=== PATIENT | female | born 1985 | race Caucasian/White ===

== ENCOUNTER 2019-06-04 00:37 | Emergency (ER) | payer OTHER ==
[2019-06-04 01:02] LABS: Bacteria/HPF 2+ HPF (None Seen); Bilirubin 1+ (Negative); Blood, Urine Negative (Negative); Clarity Clear (Clear); Glucose, Urine (Dipstick) Normal (Negative); Leukocyte Negative Leu/uL (Negative); Nitrite 1+ (Negative); Protein, Urine (Dipstick) Negative (Neg-Trace); RBC/HPF 0-3 HPF (0-3); Squamous Epithelial 0-3 HPF (0-3); Urobilinogen 3 mg/dL (Less than 2); WBC/HPF 0-3 HPF (0-3)
[2019-06-04 01:33] LABS: Hemoglobin 11.1 g/dL (12.0-16.0); Mean Corpuscular HGB CONC 32.8 g/dL (32.0-36.0); Mean Corpuscular Hemoglobin 21.2 pg (27.0-31.0); Mean Corpuscular Volume 64.7 fL (78.0-98.0); Mean Platelet Volume 8.3 fL (7.4-10.4); Platelet Count 303 thou/uL (130-400); RBC Distribution Width 14.5 % (11.5-14.5); Red Blood Cell (RBC) Count 5.25 mill/uL (4.20-5.40); White Blood Cell (WBC) Count 13.2 thou/uL (4.8-10.8)
[2019-06-04 01:48] LABS: #Basophils 0.1 thou/uL (0.0-0.2); #Eosinphils 0.1 thou/uL (0.0-0.7); #Lymphocytes 3.7 thou/uL (1.20-3.40); #Monocytes 0.8 thou/uL (0.11-0.59); #Neutrophils 8.6 thou/uL (1.40-6.50); %Basophils 0.6 % (0.0-1.0); %Eosinophils 0.7 % (0.0-10.0); %Lymphocytes 27.8 % (21.0-51.0); %Monocytes 6.1 % (0.0-10.0); %Neutrophils 64.9 % (42.0-75.0); MDiff Complete? YES; Microcytosis SLIGHT = 6-15 cells (100X) (0-5/hpf); Tear Drops SLIGHT = 2-5 cells (100X) (0-1/hpf)
--- NOTE | 2019-06-04 07:25 | ULT ---
TRANSVAGINAL PELVIC ULTRASOUND: INDICATION: History of early and pelvic pain. FINDINGS: There is a small intraluminal oval cystic structure suspicious for a small gestational sac. This luli sures 3.6 mm giving an estimated gestational age of 5 weeks and 1 day. No intergestational yolk sac or pole is demonstrated. A small amount of free fluid is seen within the pelvis. The right ov john measures 3.5 x 4.3 x 3.8 cm. There is a small follicular cyst within the right ovary measuring 2 .9 cm. The left ovary measures 3.4 x 2.4 x 2.5 cm. A small amount of free fluid is seen in the pelvis. IMPRESSION: 1. Small intrauterine cystic abnormality most suspicious for an intrauterine gestational sac. No yo lk sac or pole is yet identified. Findings are most consistent with of undetermined location. Ectopic still not excluded. Will recommend continued clinical and sonographic followup. The gestational age based on suspected gestational sac mean diameter was 5 weeks and 1 day. 2. Right ovarian cyst. POS: [facility]
[2019-06-04 23:05] LABS: Chlamydia by PCR Not Detected (NotDetected); GC by PCR Not Detected (NotDetected)
== END 2019-06-04 03:45 | disposition home or self-care (01) ==
LOC: ERS 00:37
DX: O23.41 Unspecified infection of urinary tract in pregnancy, first trimester (principal); O99.341 Other mental disorders complicating pregnancy, first trimester; F31.9 Bipolar disorder, unspecified; F41.9 Anxiety disorder, unspecified; F60.9 Personality disorder, unspecified; Z87.891 Personal history of nicotine dependence; O99.011 Anemia complicating pregnancy, first trimester
CPT/HCPCS: 36415; 76856; 81003; 81015; 84702; 85025; 86900; 86901; 87480; 87491; 87510; 87591; 87660

== ENCOUNTER 2019-12-08 18:03 | Day surgery (SDC) | payer OTHER ==
[2019-12-08 18:32] VITALS: BMI 41.3
[2019-12-08] MEDS ORDERED: Ondansetron PF 4 MG/2 ML Vial IVP PRN (19:44)
[2019-12-08] MEDS ORDERED: Lactated Ringer's 1,000 ML IV SCH (19:45)
[2019-12-08] MEDS ORDERED: Acetaminophen 500 MG TAB PO SCH (19:45)
--- NOTE | 2019-12-08 20:56 | PDOC.FPROB ---
FMR OB H&P: HPI - History of Present Illness Chief Complaint: fever, body aches, vomiting Indentification: 34yo at 31w by undetermined dates History of Present Illness: Pt presented to [facility] for flu-like sx. She was seen in the clinic late last week after having positive flu exposure from son. She saw PCP, Dr. Cespedes, who placed her on prophylactic tamiflu. She developed body aches, subjective fever, n/v on Saturday and sx persisted. N/v became worse so went to [place] ED today where she was confirmed with Influenza. She was transferred here for OB evaluation. Currently reports feeling improved after receiving 1LNS , 4mg ODT Zofran, 4mg IV Zofran at outside ED. She had a MCCOY that is resolved with tylenol. Denies abd pain, vb, lof. Reports good FM. Primary Care Physician: Angi QUINTANA FMR OB H&P: Current - Care : 2 Para: 1 Gestational age: 32 FMR OB H&P: History - Past Medical History PMH: Bipolar DO - OB History OB History: 1 prior Csection at 34w d/t preeclampsia - Surgical History Sx History: wrist sx ankle sx tonsillectomy cholecystectomy - Family History Family History: none FMR OB H&P: Medications - Current Home Medications: Medication Instructions Recorded Confirmed Type Acyclovir [Acyclovir 3% Ointment] 12/08/19 History Doxylamine Succinate/Vit B6 1 tablet PO DAILY 12/08/19 12/08/19 History [Bonjesta ER 20-20 mg Tablet] Famotidine 1 tablet PO DAILY 12/08/19 12/08/19 History Magnesium Oxide 1 tablet PO DAILY 12/08/19 12/08/19 History Nystatin 12/08/19 History Ondansetron [Zofran ODT] 4 mg PO Q4HR PRN #30 tab 12/08/19 Rx Oseltamivir [Tamiflu] 75 mg PO BID #6 cap 12/08/19 Rx Pnv73/Iron,Gluc/Folic/Dss/Dha 1 tablet PO DAILY 12/08/19 12/08/19 History [Citranatal Assure Combo Pack] QUEtiapine Fumarate [SEROquel] 1 tablet PO DAILY 12/08/19 12/08/19 History Sertraline HCl 1 tablet PO DAILY 12/08/19 12/08/19 History valACYclovir HCl [Valacyclovir] 1 tablet PO DAILY 12/08/19 12/08/19 History Allergies/Adverse Reactions: Allergies Allergy/AdvReac Type Severity Reaction Status Date / Time No Known Allergies Allergy Unverified 12/08/19 18:14 FMR OB H&P: ROS - Review of Systems General: reports: fever/chills, weight/appetite/sleep changes, fatigue ENT: reports: nasal congestion. denies: sore throat Respiratory: denies: shortness of breath Gastrointestinal: reports: nausea, vomiting. denies: abdominal pain Genitourinary (Female): denies: vaginal bleeding, contractions Musculoskeletal: reports: pain FMR OB H&P: Vital Signs - Maternal Vital signs: BP 117/70, P91, T98.2, R20, 98% O2 RA - Heart Tones Baseline: 130 Variability: moderate Acceleration: present Deceleration: absent Category: category 1 [place] contractions every: none FMR OB H&P: Physical Exam - Physical Exam General: NAD, awake, alert and oriented Heart: RRR General: no respiratory distress Abdomen: gravid, non-tender Psychiatric: intact recent and remote memory, normal mood and affect FMR OB H&P: Results - Labs Lab results: WBC 8.6 Hgb 9.1 Hct 30.2 LA 1.1 UA with 100 protein, trace blood, trace ketones, small bilirubin, 2+ bacteria FMR OB H&P: A/P - Problem List (1) Influenza Status: Acute Code(s): J11.1 - FLU DUE TO UNIDENTIFIED INFLUENZA VIRUS W OTH RESP MANIFEST (2) Status: Acute (3) Bipolar 1 disorder Status: Acute Code(s): F31.9 - BIPOLAR DISORDER, UNSPECIFIED Disposition: at 31w here with influenza. Influenza during 3T: s/p 1L NS, zofran IV and ODT in outside ED. VS wnl. Reactive strip. Discussed with pt sx managment at home with OTC Mucinex, tylenol cold/flu, and tylenol for MCCOY. Will send home with ODT Zofran and discussed importance of PO hydration. Pt tolerating PO intake at this time. Transition to Tamiflu BID to complete 5 day course. Recommend f/u with PCP within the week. Bipolar DO: continue home meds. Dispo: D/c home. Discussion: Date/Time: 12/08/192055 This H&P was discussed with Dr. Soriano who agree with the above documentation and plan. Addendum - Attending - Attending Attestation Date/Time: 12/09/19805 I personally evaluated the patient and discussed the management with Dr. Lucero and Juan Carlos. I agree with the History, Examination, Assessment and Plan documented above with any addition or exceptions noted below. The patient looks quite well. She is AF, has mild erythema of the POP s exudates, no cervical or supraclavicular LAD, RRR s M, CTAB s w/r/r. No edema. Change ppx tamiflu to treatment dose. PRN meds for symptoms. Follow up in clinic is in 2 days per her report.
== END 2019-12-08 21:55 | disposition home or self-care (01) ==
LOC: L&D/OP 18:03
PROVIDERS: ATTEND Family Medicine
DX: O99.513 Diseases of the respiratory system complicating pregnancy, third trimester (principal); J11.1 Influenza due to unidentified influenza virus with other respiratory manifestations; O99.343 Other mental disorders complicating pregnancy, third trimester; F31.9 Bipolar disorder, unspecified; O34.219 Maternal care for unspecified type scar from previous cesarean delivery; Z3A.31 31 weeks gestation of pregnancy; Z79.899 Other long term (current) drug therapy
CPT/HCPCS: 96360; 96361; 99283

== ENCOUNTER → 2020-01-19 | Day surgery (SDC) | payer OTHER ==
[~2020-01-19] MED LIST: hydrALAZINE 20 MG/ML VIAL SLOW IVP PRN
--- NOTE | 2020-01-19 14:02 | PDOC.FPROB ---
FMR OB H&P: HPI - History of Present Illness Chief Complaint: Elevated BP, [place], RUQ Pain, Swelling, MCCOY History of Present Illness: Pt is a 34 yo F @ 37.2 wks who presents for elevated blood pressure. She has a history of pre-eclampsia and was induced at 36 weeks with her last . She went to have her weekly modified BPP today at clinic. Her initial blood pressure was 152/81. They re-checked it and was her blood pressure was 133/69. Blood pressures were running 120s-130s for the past two weeks, but this past week blood pressure were running 140s. She endorsed bright spots in her vision, RUQ pain, swelling, and headache at clinic today. They sent her over for workup. Patient says over the weekend she became lightheaded and dizzy upon standing and had bright flashes in her vision. She says this was alleviated with rest. Blood pressure was in 140s, but she was advised to go to the ER for blood pressures in 150s. She says she has had good movement. No bleeding or loss of fluids. She has had vaginal discharge of . Primary Care Physician: DAMIÁN Cespedes FMR OB H&P: Current - Care : 2 Para: 1 Gestational age: 37 Due date: 02/07/2020 Dating Criteria: 7.2 wk US Total weight gain: 25 - OB Labs Blood type: O RH: negative Antibody Screen: negative HIV: negative RPR: negative Rubella: immune Gonorrhea: negative Chlamydia: negative A1c: 4.9% H&H: 8.9/28 Platelets: 304 Additional labs: Hep C: NR - First Trimester Ultrasound First trimester: US @7.2 wks - Anatomy Survey Anatomy survey: AURE: 14.4 cm, MVP: 5.3 cm. BPP 8/8. Normal anatomy survey. Posterior placenta with no accreta or previa. FMR OB H&P: History - Past Medical History PMH: Bipolar, Beta-thalassemia minor, Anemia, GERD, Migraine, HSV - OB History OB History: History of Pre-Eclampsia with first LTCS @ 34 wks. - Surgical History Sx History: - Social History Social History: Stopped smoking when she found out she was this . Previously smoked 4-5 years 1 pack every 2 days. No alcohol or recreational drugs. - Family History Family History: HTN in mother FMR OB H&P: Medications - Current Home Medications: Medication Instructions Recorded Confirmed Type Acyclovir [Acyclovir 3% Ointment] 12/08/19 History Doxylamine Succinate/Vit B6 1 tablet PO DAILY 12/08/19 12/08/19 History [Bonjesta ER 20-20 mg Tablet] Famotidine 1 tablet PO DAILY 12/08/19 12/08/19 History Magnesium Oxide 1 tablet PO DAILY 12/08/19 12/08/19 History Nystatin 12/08/19 History Ondansetron [Zofran ODT] 4 mg PO Q4HR PRN #30 tab 12/08/19 Rx Oseltamivir [Tamiflu] 75 mg PO BID #6 cap 12/08/19 Rx Pnv73/Iron,Gluc/Folic/Dss/Dha 1 tablet PO DAILY 12/08/19 12/08/19 History [Citranatal Assure Combo Pack] QUEtiapine Fumarate [SEROquel] 1 tablet PO DAILY 12/08/19 12/08/19 History Sertraline HCl 1 tablet PO DAILY 12/08/19 12/08/19 History valACYclovir HCl [Valacyclovir] 1 tablet PO DAILY 12/08/19 12/08/19 History Allergies/Adverse Reactions: Allergies Allergy/AdvReac Type Severity Reaction Status Date / Time No Known Allergies Allergy Unverified 12/08/19 18:14 FMR OB H&P: ROS - Review of Systems General: reports: fatigue. denies: fever/chills Eyes: reports: scotomas ENT: denies: nasal congestion, rhinorrhea Cardiovascular: reports: edema. denies: chest pain Respiratory: reports: shortness of breath. denies: cough Gastrointestinal: reports: abdominal pain. denies: nausea, vomiting, diarrhea, constipation Genitourinary (Female): reports: vaginal discharge. denies: vaginal bleeding, contractions Musculoskeletal: reports: swelling Neurologic: reports: other (dizziness) Integumentary: denies: itching Endocrine: denies: polydipsia, polyuria Hematologic/Lymphatic: denies: prolonged or excessive bleeding, enlarged lymph nodes Psychological: reports: depression, anxiety FMR OB H&P: Vital Signs - Maternal Vital signs: BP: 126/73 HR: 99 T: 99.7 O2: 100 on RA Wt: 116.12 kg - Heart Tones Baseline: 120 Variability: moderate Acceleration: present Deceleration: absent Category: category 1 [place] contractions every: 1 every 10 minutes FMR OB H&P: Physical Exam - Physical Exam General: NAD, awake, alert and oriented HEENT: normocephalic and atraumatic, PERRLA, EOMI, MMM, conjunctiva clear, oropharynx clear Neck: supple, FROM Heart: RRR, normal S1/S2, no murmurs/rubs/gallops, pulses present, no edema General: CTAB, no respiratory distress, good air movement, no rales/rhonchi, no wheezing, no retractions Abdomen: soft, gravid, non-tender, bowel sound present Musculoskeletal: normal gait and station, pulses present, FROM in all four extremities Skin: no rash, good tugor, no jaundice Lymphatic: no unusual bruising or bleeding, no purpura, no petechia Psychiatric: intact recent and remote memory, good judgement and insight, normal mood and affect FMR OB H&P: Results - Imaging Imaging: BPP: 8/10, no breathing, AURE: 13, Vertex, HR: 144 FMR OB H&P: A/P - Problem List (1) Elevated blood pressure affecting in third trimester, antepartum Current Visit: Yes Status: Acute Code(s): O16.3 - UNSPECIFIED MATERNAL HYPERTENSION, THIRD TRIMESTER (2) Bipolar 1 disorder Current Visit: No Status: Acute Code(s): F31.9 - BIPOLAR DISORDER, UNSPECIFIED (3) Current Visit: No Status: Acute Disposition: Pt is a 34 yo F @ 37.2 wks who presents for elevated blood pressure. 1. Elevated Blood pressure BP: 152/81 in clinic 133/69 on recheck * Blood pressures at home were 140s * Complained for bright flashes, swelling, SOB, and dizziness with standing * CBC, CMP, & Protein/Creatinine ordered all wnl except Hgb 9.8, which is improved * BPP: 8/10 due to lack of breathing * Strip reactive * BP was 110s-120s throughout observation. 2. HSV * Currently on Prophylaxis 3. Beta-Thalasemmia Minor with Anemia * Currently on Iron 4. Bipolar Disorder * Taking Zoloft & Seroquel Dispo: D/c with precautions to return. Discussion: Date/Time: 01/19/20 1401 This H&P was discussed with [] and [] who agree with the above documentation and plan. Addendum - Attending - Attending Attestation Date/Time: 01/19/20 1641 I personally evaluated the patient and discussed the management with Dr. Iveth Méndez I agree with the History, Examination, Assessment and Plan documented above with any addition or exceptions noted below - 34 yo @37.2 weeks with h/ o cHTN and beta thalassemia minor sent from clinic due to elevated BP while being seen for BPP. Reports spots in front eyes for last 2-3 days primarily when changing positions. Home BP has been in 140/70 for last 2-3 days. (+) FM. Initial BP at office 151/71 repeat was 133/76. Serial BP in L&D 100-110/60s- 70s. NST reactive; BPP 6/8. ALT/AST- normal. Platelets normal. Urine protein< 10. A/P: 1) IUP @ 37.2 weeks with cHTN- normal BP here and urine protein negative. Will d/c home with close monitoring. F/U as scheduled in office on Thrusday.
[2020-01-19 14:18] VITALS: BMI 41.3
[2020-01-19 15:02] VITALS: BP 112/67; TEMP 97.4
[2020-01-19 15:13] LABS: Bacteria/HPF 4+ HPF (None Seen); Bilirubin Negative (Negative); Blood, Urine Negative (Negative); Clarity Clear (Clear); Glucose, Urine (Dipstick) Normal (Negative); Leukocyte Negative Leu/uL (Negative); Nitrite Negative (Negative); Protein, Urine (Dipstick) Negative (Neg-Trace); RBC/HPF 0-3 HPF (0-3); Squamous Epithelial 0-3 HPF (0-3); Urobilinogen Normal mg/dL (Less than 2); WBC/HPF 0-3 HPF (0-3)
[2020-01-19 15:19] LABS: Hemoglobin 9.8 g/dL (12.0-16.0); Mean Corpuscular HGB CONC 29.2 g/dL (32.0-36.0); Mean Corpuscular Hemoglobin 20.5 pg (27.0-31.0); Mean Corpuscular Volume 70.2 fL (78.0-98.0); Mean Platelet Volume 9.9 fL (7.4-10.4); Platelet Count 293 thou/uL (130-400); RBC Distribution Width 16.9 % (11.5-14.5); Red Blood Cell (RBC) Count 4.79 mill/uL (4.20-5.40); White Blood Cell (WBC) Count 10.1 thou/uL (4.8-10.8)
[2020-01-19 15:44] LABS: Anisocytosis SLIGHT = 6-15 cells (100X) (0-5/hpf); Band 2 % (5-11); Eosinophils 1 % (0-10); Hypochromia SLIGHT = 6-15 cells (100X) (0-5/hpf); Lymphocytes 26 % (21-51); MDiff Complete? YES; Metamyelocyte 1 % (0-0); Microcytosis SLIGHT = 6-15 cells (100X) (0-5/hpf); Monocytes 9 % (0-10); Myelocyte 2 % (0-0); Neutrophil 58 % (42-75); Platelet Morphology Comment Appears Adequate; Polychromasia SLIGHT = 2-3 cells (100X) (0-2/hpf); Tear Drops SLIGHT = 2-5 cells (100X) (0-1/hpf)
[2020-01-19 15:45] LABS: Creatinine, Urine 25.65 mg/dL (47-110); Protein, Urine Random Quant Less than 10 mg/dL (1-14)
[2020-01-19 15:47] LABS: ALT (SGPT) 15 U/L (8-55); AST (SGOT) 32 U/L (5-34); Albumin 3.4 g/dL (3.5-5.0); Alkaline Phosphatase 63 U/L (40-110); Anion Gap 14 mmol/L (10-20); BUN (Urea Nitrogen) 4 mg/dL (7.0-18.7); Bilirubin, Total 0.3 mg/dL (0.2-1.2); Calc. Creatinine Clearance 262 mL/min (70-130); Calcium 9.1 mg/dL (7.8-10.44); Carbon Dioxide 18 mmol/L (22-29); Chloride 107 mmol/L (98-107); Estimated GFR-MDRD Greater than 90; Globulin 3.1 g/dL (2.4-3.5); Glucose 67 mg/dL (70-105); Potassium 4.2 mmol/L (3.5-5.1); Protein, Total 6.5 g/dL (6.0-8.3); Sodium 135 mmol/L (136-145)
--- NOTE | 2020-01-19 16:24 | ULT ---
ULTRASOUND BIOPHYSICAL PROFILE: 01/19/20 HISTORY: Pre-eclampsia. COMPARISON: Pelvic ultrasound 06/04/19. FINDINGS: Real time carrillo scale, color Doppler with spectral analysis of the gravid uterus is performed. The biophysical profile score was 6/8 scoring 0 for breathing. There is a normal score of 2 for tone, 2 for movements, and 2 for amniotic fluid. Heart rate documented at 141 beats per minute. Amniotic fluid index: 13 cm. The position is vertex. IMPRESSION: Biophysical profile score of 6/8. POS: [facility]
== END | disposition home or self-care (01) ==
LOC: L&D/OP 13:50
PROVIDERS: ATTEND Emergency Medicine
DX: O10.913 Unspecified pre-existing hypertension complicating pregnancy, third trimester (principal); O34.219 Maternal care for unspecified type scar from previous cesarean delivery; O98.513 Other viral diseases complicating pregnancy, third trimester; B00.9 Herpesviral infection, unspecified; O99.343 Other mental disorders complicating pregnancy, third trimester; F31.9 Bipolar disorder, unspecified; O99.013 Anemia complicating pregnancy, third trimester; D64.9 Anemia, unspecified; O99.613 Diseases of the digestive system complicating pregnancy, third trimester; K21.9 Gastro-esophageal reflux disease without esophagitis; Z3A.37 37 weeks gestation of pregnancy; Z87.891 Personal history of nicotine dependence; Z88.8 Allergy status to other drugs, medicaments and biological substances; Z79.899 Other long term (current) drug therapy
CPT/HCPCS: 36415; 76819; 80053; 81003; 82570; 84156; 85025; 99283

== ENCOUNTER 2020-01-26 09:24 | Inpatient (IN) | payer OTHER ==
[~2020-01-26 09:24] MED LIST changes: +Acetaminophen 500 MG TAB PO PRN; +CEFAZOLIN 2 GM in Premix Bag 1 BAG IVPB SCH; +Ondansetron PF 4 MG/2 ML Vial IVP PRN; +Promethazine HCl 25 MG/ML VIAL IM PRN
[2020-01-26] MEDS ORDERED: Succinylcholine Chloride 20 MG/ML 10 ml SYRINGE FS ONE ×2 (09:53→13:08)
[2020-01-26] MEDS ORDERED: PROPOFOL 200 MG/20 ML VIAL ONE (09:53)
[2020-01-26] MEDS ORDERED: Rocuronium Bromide 10 MG/ML (10ML VIAL) ONE (09:53)
[2020-01-26] MEDS ORDERED: Dexamethasone 20 MG/5 ML VIAL ONE (09:53)
[2020-01-26] MEDS ORDERED: Ondansetron PF 4 MG/2 ML Vial ONE ×4 (09:53→13:08)
[2020-01-26] MEDS ORDERED: Glycopyrrolate 0.2 MG/ML 5 ML SYRINGE ONE (09:53)
[2020-01-26] MEDS: Lactated Ringer's 1,000 ML IV SCH ×2 (10:25→11:43)
[2020-01-26 10:53] LABS: Hemoglobin 9.6 g/dL (12.0-16.0); Mean Corpuscular HGB CONC 32.3 g/dL (32.0-36.0); Mean Corpuscular Hemoglobin 21.5 pg (27.0-31.0); Mean Corpuscular Volume 66.5 fL (78.0-98.0); Mean Platelet Volume 8.5 fL (7.4-10.4); Platelet Count 284 thou/uL (130-400); RBC Distribution Width 16.4 % (11.5-14.5); Red Blood Cell (RBC) Count 4.48 mill/uL (4.20-5.40); White Blood Cell (WBC) Count 11.4 thou/uL (4.8-10.8)
--- NOTE | 2020-01-26 11:09 | PDOC.FPROB ---
FMR OB H&P: HPI - History of Present Illness Chief Complaint: Scheduled rLTCs History of Present Illness: Pt is a 34 yo F @ 38.2 wks who presents for repeat lower transverse c- section. She has a history of pre-eclampsia and was induced at 36 weeks with her last . Blood pressures were running 130s-140s for the last week. She endorses headaches and swelling in hands, face, and legs. She endorses good movement. No loss of fluid or bleeding. She says she does have a discharge currently, which she has been evaluated for. Primary Care Physician: DAMIÁN Cespedes/Frandy FMR OB H&P: Current - Care : 2 Para: 0101 Gestational age: 38.2 Due date: 02/07/2020 Dating Criteria: 7.2 wk US Total weight gain: 25 Course/Complications: Elevated blood pressures - OB Labs Blood type: O RH: negative Antibody Screen: negative HIV: negative RPR: negative HepBsAg: negative Rubella: immune Gonorrhea: negative Chlamydia: negative 1 hour gtt: Neg A1c: 4.9% GBS: negative H&H: 9.6/29.8 Platelets: 284 Additional labs: Hep C: Neg FMR OB H&P: History - Past Medical History PMH: Beta thalessemia, HSV, Bipolar, Anxiety - OB History OB History: History of Pre-Eclampsia with first LTCS @ 34 wks. - Surgical History Sx History: , 5 wrist surgeries - Social History Social History: No alcohol or recreational drugs. Stopped smoking when she found out she was this time. Smoked 4-5 years 1 pack every 2 days. FMR OB H&P: Medications - Current Home Medications: Medication Instructions Recorded Confirmed Type Magnesium Oxide 1 tablet PO DAILY 12/08/19 12/08/19 History Pnv73/Iron,Gluc/Folic/Dss/Dha 1 tablet PO DAILY 12/08/19 12/08/19 History [Citranatal Assure Combo Pack] QUEtiapine Fumarate [SEROquel] 1 tablet PO DAILY 12/08/19 12/08/19 History Sertraline HCl 1 tablet PO DAILY 12/08/19 12/08/19 History valACYclovir HCl [Valacyclovir] 1 tablet PO DAILY 12/08/19 01/26/20 History Allergies/Adverse Reactions: Allergies Allergy/AdvReac Type Severity Reaction Status Date / Time No Known Allergies Allergy Verified 01/26/20 11:17 FMR OB H&P: ROS - Review of Systems General: denies: fever/chills, fatigue Eyes: denies: vision changes ENT: denies: nasal congestion, rhinorrhea, sore throat Cardiovascular: reports: edema. denies: chest pain Respiratory: denies: cough, shortness of breath Gastrointestinal: reports: nausea. denies: abdominal pain, vomiting, diarrhea, constipation Genitourinary (Female): reports: vaginal discharge. denies: dysuria, vaginal bleeding, vaginal pressure Musculoskeletal: reports: swelling. denies: pain, redness Neurologic: reports: weakness. denies: numbness, syncope Integumentary: denies: itching, rash Endocrine: reports: heat intolerance Hematologic/Lymphatic: denies: prolonged or excessive bleeding Psychological: reports: anxiety FMR OB H&P: Vital Signs - Maternal Vital signs: HR: 98, BP: 120/72, T: 98.0 - Heart Tones Baseline: 120 Variability: moderate Acceleration: present Deceleration: absent Category: category 1 [place] contractions every: None FMR OB H&P: Physical Exam - Physical Exam General: NAD, awake, alert and oriented HEENT: normocephalic and atraumatic, PERRLA, EOMI, MMM, conjunctiva clear Neck: supple, trachea midline Heart: RRR, normal S1/S2, no murmurs/rubs/gallops, pulses present General: CTAB, no respiratory distress, good air movement, no wheezing, no retractions Abdomen: soft, gravid, non-tender, bowel sound present Musculoskeletal: pulses present, FROM in all four extremities Neurological: cranial nerves II through XII intact Skin: no rash, good tugor Lymphatic: no unusual bruising or bleeding, no purpura, no petechia Psychiatric: normal mood and affect FMR OB H&P: Results - Labs Lab results: Laboratory Results - last 24 hr 01/26/20 10:38 WBC 11.4 H RBC 4.48 Hgb 9.6 L Hct 29.8 L MCV 66.5 L MCH 21.5 L MCHC 32.3 RDW 16.4 H Plt Count 284 MPV 8.5 FMR OB H&P: A/P - Problem List (1) Beta minor thalassemia Current Visit: Yes Status: Acute Code(s): D56.3 - THALASSEMIA MINOR (2) HTN (hypertension) Current Visit: Yes Status: Acute Code(s): I10 - ESSENTIAL (PRIMARY) HYPERTENSION (3) Bipolar 1 disorder Current Visit: No Status: Acute Code(s): F31.9 - BIPOLAR DISORDER, UNSPECIFIED (4) Elevated blood pressure affecting in third trimester, antepartum Current Visit: No Status: Acute Code(s): O16.3 - UNSPECIFIED MATERNAL HYPERTENSION, THIRD TRIMESTER (5) Current Visit: No Status: Acute Disposition: Pt is a 34 yo F @ 37.2 wks who presents for elevated blood pressure. 1. Repeat Lower Transverse at 34 wks with first * Admit for @ 38.2 wks 2. Elevated Blood pressure in with HTN in the past BP: 120/72 * Will continue to monitor 2. HSV * Currently on Prophylaxis with Valtrex 3. Beta-Thalasemmia Minor with Anemia H&H: 9.6/29.8 Plt: 284 * Currently on Iron with vitamin 4. Bipolar Disorder * Taking Zoloft & Seroquel Dispo: Admit for rLTCS. Discussion: Date/Time: 01/26/20 1104 This H&P was discussed with [] and [] who agree with the above documentation and plan.
[2020-01-26 11:13] VITALS: BMI 41.3
[2020-01-26] MEDS ORDERED: Ondansetron PF 4 MG/2 ML Vial IVP SCH (11:15)
[2020-01-26 11:24] LABS: HBSAg Index 0.25 S/CO (0-0.99); Hep B Surf Ag Non-Reactive S/CO (NonReactive); Syphilis Antibody Nonreactive (Nonreactive); Syphilis Antibody Index 0.03 S/CO (<1.00 Non-Reactive)
[2020-01-26] MEDS: Bicitra 30 ML UDCUP PO SCH (11:41)
[2020-01-26] MEDS ORDERED: MORPHINE 5 MG/10 ML PF VIAL ONE (11:48)
[2020-01-26] MEDS ORDERED: Oxytocin 10 UNITS/ML VIAL ONE ×2 (11:49→11:50)
[2020-01-26] MEDS ORDERED: EPINEPHrine 1 MG/ML AMP ONE (11:54)
[2020-01-26] MEDS ORDERED: Lidocaine 1% (PF) 30 ML VIAL ONE (12:25)
[2020-01-26] MEDS ORDERED: Lidocaine 1% PF 5 ML VIAL ONE (12:25)
[2020-01-26] MEDS ORDERED: Fentanyl 250 MCG/5 ML VIAL ONE (12:32)
[2020-01-26] MEDS ORDERED: Midazolam HCl 2 mg/2 ml Vial ONE (12:33)
[2020-01-26] MEDS ORDERED: Rocuronium Bromide 50 MG/5 ML VIAL ONE (13:08)
[2020-01-26] MEDS ORDERED: PROPOFOL 20 ML ONE (13:08)
[2020-01-26] MEDS ORDERED: Dexamethasone 4 mg/ml Vial ONE (13:08)
[2020-01-26] MEDS ORDERED: Phytonadione Neonatal 1 MG/0.5 ML AMP ONE (13:10)
[2020-01-26] MEDS ORDERED: Erythromycin Base 0.5% Oint 1 GM TUBE ONE (13:10)
[2020-01-26] MEDS ORDERED: Meperidine HCl/PF 25 MG/ML VIAL SLOW IVP PRN (13:47)
[2020-01-26] MEDS ORDERED: Ondansetron HCl/PF 4 MG/2 ML Vial IVP PRN (13:47)
[2020-01-26] MEDS ORDERED: HYDROmorphone 2 MG/ML VIAL SLOW IVP PRN (13:47)
[2020-01-26] MEDS ORDERED: L&D-Morphine 4 MG/ML VIAL SLOW IVP PRN (13:47)
[2020-01-26] MEDS ORDERED: Morphine CADD 1 MG/ML CADD IVPB PRN (13:48)
[2020-01-26] MEDS ORDERED: diphenhydrAMINE 50 MG/ML VIAL IM PRN (13:48)
[2020-01-26] MEDS ORDERED: Promethazine HCl 25 MG/ML VIAL IM PRN (13:48)
[2020-01-26] MEDS ORDERED: Zolpidem Tartrate 5 MG TAB PO PRN (13:48)
[2020-01-26] MEDS ORDERED: diphenhydrAMINE 50 MG/ML VIAL IVP PRN (13:48)
[2020-01-26] MEDS ORDERED: Ondansetron PF 4 MG/2 ML Vial IVP PRN ×2 (13:48→15:34)
[2020-01-26] MEDS ORDERED: diphenhydrAMINE 25 MG CAP PO PRN ×2 (13:48→15:34)
[2020-01-26] MEDS ORDERED: Naloxone HCl 0.4 mg/ml Vial IV PRN ×2 (13:48→14:00)
[2020-01-26] MEDS ORDERED: Morphine Sulfate 100 MG in Dextrose 5% in Water 98 ML IV SCH (14:00)
[2020-01-26] MEDS ORDERED: Ketorolac Tromethamine 30 MG/ML VIAL IVP SCH (14:00)
[2020-01-26] MEDS ORDERED: Communication Order-Pharmacy FS SCH (14:00)
[2020-01-26] MEDS ORDERED: Meperidine HCl/PF 25 MG/ML VIAL ONE (14:30)
[2020-01-26] MEDS ORDERED: hydrALAZINE 20 MG/ML VIAL SLOW IVP PRN (15:34)
[2020-01-26] MEDS ORDERED: Lanolin Ointment 7 GM TUBE TOP PRN (15:34)
[2020-01-26] MEDS ORDERED: HYDROcodone/Acetaminophen 5/325 mg Tablet PO PRN (15:34)
[2020-01-26] MEDS ORDERED: Ibuprofen 800 MG TAB PO SCH (15:34)
[2020-01-26] MEDS ORDERED: Acetaminophen/Codeine 30-300mg Tablet PO PRN (15:34)
[2020-01-26] MEDS ORDERED: Adacel (T-DAP) 0.5 ML SYRINGE IM ONE (15:34)
[2020-01-26] MEDS ORDERED: Acetaminophen 325 MG TAB PO PRN (15:34)
[2020-01-26] MEDS: Ketorolac Tromethamine 30 MG/ML VIAL IVP PRN ×2 (17:28→23:48)
[2020-01-26 18:08] LABS: Hemoglobin 9.2 g/dL (12.0-16.0); Mean Corpuscular HGB CONC 32.5 g/dL (32.0-36.0); Mean Corpuscular Hemoglobin 21.7 pg (27.0-31.0); Mean Corpuscular Volume 66.6 fL (78.0-98.0); Mean Platelet Volume 9.2 fL (7.4-10.4); Platelet Count 284 thou/uL (130-400); RBC Distribution Width 16.1 % (11.5-14.5); Red Blood Cell (RBC) Count 4.23 mill/uL (4.20-5.40); White Blood Cell (WBC) Count 19.4 thou/uL (4.8-10.8)
[2020-01-26] MEDS: Docusate Calcium (SURFAK) 240 MG CAP PO SCH (21:39)
[2020-01-26] MEDS: Ferrous Sulfate 325 MG TAB PO SCH (21:41)
--- NOTE | 2020-01-26 21:42 | OP ---
DATE OF PROCEDURE: 01/26/2020 RESIDENT SURGEON: Anurag Wise DO [employer] SURGEONS: 1. Rod Rangel DO. 2. Christina Lindsay MD. PROCEDURE PERFORMED: Repeat low-transverse section. PREOPERATIVE DIAGNOSES: 1. Term intrauterine . 2. Chronic hypertension. 3. Beta-thalassemia minor. 4. Rh negative. 5. History of herpes simplex virus. 6. Bipolar disorder. POSTOPERATIVE DIAGNOSES: 1. Term intrauterine , delivered. 2. Chronic hypertension. 3. Beta-thalassemia minor. 4. Rh negative. 5. History of herpes simplex virus. 6. Bipolar disorder. ANESTHESIA: General, failed spinal. INDICATIONS: The patient is a 34-year-old, G2, P0-1-0-1, now P1-1-0-2, female at 38 and 2 weeks' gestation who presented for repeat scheduled section. DESCRIPTION OF PROCEDURE: After risks, benefits, alternatives were explained to the patient, she gave informed consent. Preoperative antibiotics included Ancef 2 g IV. The patient was taken to the operating room and general anesthesia was initiated after failed spinal attempt. She was placed in a supine position with a left tilt, prepped and draped in usual sterile fashion. After general anesthesia was accomplished, a Pfannenstiel incision was made with a scalpel and carried down to the level of fascia, which was sharply nicked. The fascial cut was extended bilaterally with Scherer scissors. The inferior and superior edges of the cut fascial edges were elevated with Tacho clamps and the underlying rectus muscles were sharply and bluntly dissected free. The recti were divided with hemostats as well as digitally and retracted manually. The peritoneum was entered bluntly and retracted manually. A bladder blade was placed. A low-transverse score was made with a scalpel and the uterus was entered in the midline with the scalpel. Clear fluid was seen. The hysterotomy was extended manually. The was noted to be vertex and easily delivered with fundal pressure. Mouth and nares were bulb suctioned. The cord was clamped and cut and grossly normal female infant was handed to the waiting nurse. Cord blood was obtained. The placenta was delivered spontaneously. Found to be intact with 3-vessel cord discarded. The uterus was externalized and endometrium was curetted with dry lap. The bladder blade was replaced and the uterus was closed with a running locking 1 Monocryl suture, followed by 2 [id number] Monocryl sutures. Following this, Seferino was placed over the closed hysterotomy site and hemostasis was then noted. The paracolic gutters were then visualized and found to be free of clots. The tubes and ovaries on both sides were visualized and grossly normal. Uterus was then internalized and the hysterotomy was again noted to be hemostatic. The fascia was closed with a running nonlocking 0 PDS suture. The subcutaneous tissue was then irrigated and a small bleeder was cauterized with Bovie cauterization. The subcutaneous tissue was approximated with plain gut suture in simple interrupted fashion. The skin was then approximated with marie and a wound VAC was applied. All counts were correct. The patient tolerated procedure well and was taken to recovery room in stable condition. QUANTITATIVE BLOOD LOSS: 690 mL. COMPLICATIONS: None. SPECIMENS: Cord blood sent to lab for blood type. FINDINGS: 1. Grossly normal female infant with Apgars of 8 and 9 at 1 and 5 minutes respectively. Time of delivery at 1257 hours. 2. Grossly normal placenta with 3-vessel cord discarded. DRAINS: [place] to gravity draining clear urine. Job ID: [id number] [facility]
[2020-01-27] MEDS: Ketorolac Tromethamine 30 MG/ML VIAL IVP PRN (06:26)
[2020-01-27 06:40] LABS: Hemoglobin 8.7 g/dL (12.0-16.0); Mean Corpuscular HGB CONC 32.2 g/dL (32.0-36.0); Mean Corpuscular Hemoglobin 21.5 pg (27.0-31.0); Mean Corpuscular Volume 66.8 fL (78.0-98.0); Mean Platelet Volume 8.9 fL (7.4-10.4); Platelet Count 286 thou/uL (130-400); RBC Distribution Width 16.2 % (11.5-14.5); Red Blood Cell (RBC) Count 4.05 mill/uL (4.20-5.40)
[2020-01-27] MEDS ORDERED: Acetaminophen/Codeine 30-300mg Tablet PO PRN (07:10)
--- NOTE | 2020-01-27 08:04 | PDOC.PP ---
Post Progress Note Post Day #: 1 Subjective: 34 yo G2 now P2 s/p rLTCS pp day 1. Pt reports she is doing well and is ready to go home. She has met all pp milestones. No complaints. PO intake tolerated: yes Flatus: yes Ambulation: yes Vital Signs (12 hours) Temp Pulse Resp BP Pulse Ox 01/27/20 06:20 97.9 F 80 14 106/62 95 01/27/20 00:10 98.1 F 74 14 100/53 L 95 01/26/20 20:25 99.1 F 95 16 115/58 L 96 Weight Weight 116.12 kg - Physical Examination General: NAD Cardiovascular: no m/r/g, RRR Respiratory: clear to auscultation bilaterally, non-labored breathing Abdominal: + bowel sounds, lochia, no distention, appropriately TTP Extremities: negative homans (B) Skin: no rash (Wound vac in place) Neurological: no gross focal deficits Psychiatric: normal affect Result Diagrams: 01/27/20 06:26 Additional Labs: Post Labs Blood Type O NEGATIVE 01/26/20 10:38 Hep Bs Antigen Non-Reactive S/CO (NonReactive) 01/26/20 10:38 (1) delivery delivered Code(s): O82 - ENCOUNTER FOR DELIVERY WITHOUT INDICATION Status: Acute (2) Beta minor thalassemia Code(s): D56.3 - THALASSEMIA MINOR Status: Acute (3) HTN (hypertension) Code(s): I10 - ESSENTIAL (PRIMARY) HYPERTENSION Status: Acute (4) Bipolar 1 disorder Code(s): F31.9 - BIPOLAR DISORDER, UNSPECIFIED Status: Acute (5) Elevated blood pressure affecting in third trimester, antepartum Code(s): O16.3 - UNSPECIFIED MATERNAL HYPERTENSION, THIRD TRIMESTER Status: Acute (6) Rh negative status during Code(s): O26.899 - OTH RELATED CONDITIONS, UNSPECIFIED TRIMESTER; Z67.91 - UNSPECIFIED BLOOD TYPE, RH NEGATIVE Status: Acute - Assessment/Plan 1) s/p rltcs -ALL pp milestones met - monitor overnight and hopeful dc to home in am 2) b thal minor - hh stable - monitor for ss of cont bleeding 3) bipolar, cont home meds 4) RH neg - s/p rhogam pp Dispo: stable, plan for dc to home tomorrow pending pp course throughout the day. Encourage ambulation. Wound vac to remain in place for 7 days.
[2020-01-27] MEDS ORDERED: Ibuprofen 800 MG TAB PO SCH (09:00)
[2020-01-27] MEDS: Prenatal Vitamin 1 TAB PO SCH (09:01)
[2020-01-27] MEDS: HYDROcodone/Acetaminophen 5/325 mg Tablet PO PRN ×4 (09:01→21:37)
[2020-01-27] MEDS: Ferrous Sulfate 325 MG TAB PO SCH ×2 (09:02→20:40)
[2020-01-27] MEDS: Docusate Calcium (SURFAK) 240 MG CAP PO SCH ×2 (09:02→20:40)
[2020-01-27] MEDS: Simethicone Chewable 80 MG TAB PO PRN ×2 (12:51→18:40)
[2020-01-27] MEDS: Ibuprofen 800 MG TAB PO SCH ×2 (12:52→19:55)
[2020-01-27] MEDS ORDERED: valACYclovir 500 MG TAB PO SCH (21:00)
[2020-01-28] MEDS: HYDROcodone/Acetaminophen 5/325 mg Tablet PO PRN ×2 (04:44→10:12)
[2020-01-28] MEDS: Simethicone Chewable 80 MG TAB PO PRN ×2 (04:45→13:11)
[2020-01-28] MEDS: Ibuprofen 800 MG TAB PO SCH (05:24)
[2020-01-28 08:22] VITALS: TEMP 98.5
--- NOTE | 2020-01-28 09:46 | PDOC.PP ---
Post Progress Note Post Day #: 2 Subjective: 34 yo G2 no wP2 pp day 2 s/p rLTCS. Pt reports pain controlled and doing well. All pp milestones met. PO intake tolerated: yes Flatus: yes Ambulation: yes Vital Signs (12 hours) Temp Pulse Resp BP Pulse Ox 01/28/20 08:21 98.5 F 85 20 117/80 97 01/28/20 04:43 97.6 F 86 14 116/64 96 Weight Weight 116.12 kg - Physical Examination General: NAD Cardiovascular: no m/r/g, RRR Respiratory: clear to auscultation bilaterally, non-labored breathing Abdominal: + bowel sounds, no distention, appropriately TTP Extremities: negative homans (B) Skin: no rash (Wound vac in place) Neurological: no gross focal deficits Psychiatric: normal affect Result Diagrams: 01/27/20 06:26 Additional Labs: Post Labs Blood Type O NEGATIVE 01/26/20 10:38 Hep Bs Antigen Non-Reactive S/CO (NonReactive) 01/26/20 10:38 (1) delivery delivered Code(s): O82 - ENCOUNTER FOR DELIVERY WITHOUT INDICATION Status: Acute (2) Beta minor thalassemia Code(s): D56.3 - THALASSEMIA MINOR Status: Acute (3) HTN (hypertension) Code(s): I10 - ESSENTIAL (PRIMARY) HYPERTENSION Status: Acute (4) Bipolar 1 disorder Code(s): F31.9 - BIPOLAR DISORDER, UNSPECIFIED Status: Acute (5) Elevated blood pressure affecting in third trimester, antepartum Code(s): O16.3 - UNSPECIFIED MATERNAL HYPERTENSION, THIRD TRIMESTER Status: Acute (6) Rh negative status during Code(s): O26.899 - OTH RELATED CONDITIONS, UNSPECIFIED TRIMESTER; Z67.91 - UNSPECIFIED BLOOD TYPE, RH NEGATIVE Status: Acute - Assessment/Plan 1) TIUP, delivered - pp day 2 - all pp milestones met, ok for dc to home Cont home meds for all other chronic medical problems.
[2020-01-28] MEDS: Prenatal Vitamin 1 TAB PO SCH (10:12)
[2020-01-28] MEDS: Docusate Calcium (SURFAK) 240 MG CAP PO SCH (10:12)
[2020-01-28] MEDS: Ferrous Sulfate 325 MG TAB PO SCH (10:13)
[2020-01-28 11:42] VITALS: BP 118/81
[2020-01-31] MEDS ORDERED: Ibuprofen 800 MG TAB PO SCH (22:00)
== END 2020-01-28 13:30 | disposition home or self-care (01) | DRG 787 ==
LOC: L&D-LIB 09:24 → 3SW 16:15
PROVIDERS: ADMIT Family Medicine; ATTEND Family Medicine
PROC: 10D00Z1 Extraction of Products of Conception, Low, Open Approach (ICD-10-PCS; principal; 2020-01-26)
DX: O34.211 Maternal care for low transverse scar from previous cesarean delivery (principal); O10.92 Unspecified pre-existing hypertension complicating childbirth; O98.52 Other viral diseases complicating childbirth; Z3A.38 38 weeks gestation of pregnancy; Z37.0 Single live birth; D56.3 Thalassemia minor; F31.9 Bipolar disorder, unspecified; B00.9 Herpesviral infection, unspecified; O75.89 Other specified complications of labor and delivery; O99.344 Other mental disorders complicating childbirth; Z67.91 Unspecified blood type, Rh negative
CPT/HCPCS: 36415; 51702; 85027; 85461; 86780; 86850; 86900; 86901; 87340; 90384; 96372; J0171; J0690; J1100; J1885; J2001; J2175; J2250; J2270; J2274; J2405; J2590; J2704; J3010; J3430; J7070

== ENCOUNTER 2022-08-01 13:43 | Outpatient (CLI) | payer OTHER | END 2022-08-01 13:44 | disposition home or self-care (01) | LOC: DTY/OP 13:43 | PROVIDERS: ATTEND Nurse Practitioner Family | DX: R63.5 Abnormal weight gain (principal) | CPT/HCPCS: 97802 ==

== ENCOUNTER 2023-03-08 10:54 | Outpatient (CLI) | payer OTHER | END 2023-03-08 10:55 | disposition home or self-care (01) | LOC: DTY/OP 10:54 | PROVIDERS: ATTEND Surgery | DX: E66.01 Morbid (severe) obesity due to excess calories (principal) | CPT/HCPCS: 97802 ==